=== PATIENT | female | born 1940 | race Caucasian/White ===

== ENCOUNTER 2018-11-09 11:12 | Inpatient (IN) ==
[2018-11-09] MEDS ORDERED: ALBUTEROL 2.5 MG/3 ML NEB RESP TX STA (11:51)
[2018-11-09 12:20] LABS: Basophils % 0.2 % (0.0-0.8); Eosinophils % 0.1 % (0.00-10.9); Hematocrit 42.1 VOL% (35.7-47.0); Hemoglobin 13.8 GM/DL (12.0-16.0); Immature Granulocytes % 0.4 %; Immature Granulocytes Absolute 0.05 #; Lymphocytes % 16.7 % (21.3-54.2); Mean Corpuscular HGB Conc 32.8 GM/DL (32-36); Mean Corpuscular Hemoglobin 30 PG (27-34); Mean Corpuscular Volume 92.1 FL (87-102); Monocytes # 0.6 10*3/uL (0.11-0.8); Monocytes % 5.1 % (1.7-12.7); Neutrophils # 9.4 10*3/uL (1.4-7.4); Neutrophils % 77.5 % (38.7-73.9); Platelet Count 248 T/CUMM (130-400); Red Blood Count 4.57 MC/CUMM (3.8-5.5); Red Cell Distribution Width 13.4 % (9.3-17.3); White Blood Count 12.1 T/CUMM (4-12)
[2018-11-09] MEDS ORDERED: ONDANSETRON 4 MG/2 ML VIAL ONE (12:27)
[2018-11-09] MEDS ORDERED: ONDANSETRON 4 MG/2 ML VIAL IV STA (12:30)
[2018-11-09] MEDS ORDERED: ENOXAPARIN 100 MG/ML SYRINGE SUBCUT STA (12:42)
[2018-11-09] MEDS ORDERED: ASPIRIN 325 MG TABLET PO STA (12:42)
[2018-11-09 12:51] LABS: Albumin 3.8 G/DL (3.4-5.0); Bilirubin,Total 0.6 MG/DL (0.2-1.0); Calcium 9.3 MG/DL (8.5-10.1); Osmolality,Calculated 281.1 MOS/KG (273-304); Potassium 4.4 MMOL/L (3.5-5.1); Total Protein 8.9 G/DL (6.4-8.3)
[2018-11-09] MEDS ORDERED: MAGNESIUM SULF RIDER 2 GM in PREMIX 1 EACH IV PRN (14:19)
[2018-11-09] MEDS ORDERED: BISACODYL 5 MG TABLET PO PRN (14:19)
[2018-11-09] MEDS ORDERED: MAGNESIUM SULF RIDER 4 GM in PREMIX 1 EACH IV PRN (14:19)
[2018-11-09] MEDS ORDERED: ONDANSETRON 4 MG/2 ML VIAL IV PRN (14:19)
[2018-11-09] MEDS ORDERED: FUROSEMIDE 40 MG/4 ML VIAL IV STA (14:54)
[2018-11-09] MEDS ORDERED: SODIUM CHLORIDE 0.9% 1,000 ML IV STA (15:05)
[2018-11-09] MEDS ORDERED: diphenhydrAMINE CAP 25 MG CAPSULE PO STA (15:17)
[2018-11-09] MEDS: ROSUVASTATIN 20 MG TABLET PO SCH (17:00)
[2018-11-09] MEDS ORDERED: diphenhydrAMINE CAP 25 MG CAPSULE PO ONE (21:00)
[2018-11-09] MEDS ORDERED: FUROSEMIDE 40 MG/4 ML VIAL IV SCH (21:00)
[2018-11-09] MEDS: APIXABAN 5 MG TABLET PO SCH (21:21)
[2018-11-09] MEDS: MAGNESIUM CHLORIDE 64 MG TABLET PO SCH (21:21)
[2018-11-10 04:09] LABS: Basophils % 0.4 % (0.0-0.8); Eosinophils % 0.2 % (0.00-10.9); Hematocrit 35.8 VOL% (35.7-47.0); Hemoglobin 11.5 GM/DL (12.0-16.0); Immature Granulocytes % 0.4 %; Immature Granulocytes Absolute 0.04 #; Lymphocytes # 3.5 10*3/uL (1.4-4.0); Lymphocytes % 37.2 % (21.3-54.2); Mean Corpuscular HGB Conc 32.1 GM/DL (32-36); Mean Corpuscular Hemoglobin 30 PG (27-34); Mean Corpuscular Volume 92.5 FL (87-102); Monocytes # 0.8 10*3/uL (0.11-0.8); Monocytes % 8.4 % (1.7-12.7); Neutrophils % 53.4 % (38.7-73.9); Platelet Count 209 T/CUMM (130-400); Red Blood Count 3.87 MC/CUMM (3.8-5.5); Red Cell Distribution Width 13.7 % (9.3-17.3); White Blood Count 9.3 T/CUMM (4-12)
[2018-11-10 04:35] LABS: Calcium 8.7 MG/DL (8.5-10.1); Osmolality,Calculated 291.3 MOS/KG (273-304)
[2018-11-10 04:40] LABS: Risk Ratio 3.69; VLDL CHOLESTEROL 25.6 MG/DL
[2018-11-10] MEDS: MAGNESIUM CHLORIDE 64 MG TABLET PO SCH ×2 (08:41→21:24)
[2018-11-10] MEDS: PANTOPRAZOLE 40 MG TABLET PO SCH (08:41)
[2018-11-10] MEDS: ASCORBIC ACID 500 MG TABLET PO SCH (08:41)
[2018-11-10] MEDS: CARVEDILOL 25 MG TABLET PO SCH (08:41)
[2018-11-10] MEDS: MULTIVITAMIN (CENTRUM) TABLET PO SCH (08:41)
[2018-11-10] MEDS: APIXABAN 5 MG TABLET PO SCH ×2 (08:41→21:24)
[2018-11-10] MEDS: ASPIRIN EC 81 MG TABLET PO SCH (08:41)
[2018-11-10] MEDS ORDERED: ENOXAPARIN 30 MG/0.3 ML SYRINGE SUBCUT SCH (09:00)
[2018-11-10 10:13] LABS: Apearance,Urine CLOUDY (Clear); Bacteria,Urine Few /HPF (Few); Bilirubin,Urine Negative (Negative); Blood, Urine Negative (Negative); Glucose,Urine (UA) Negative (Negative); Hyaline Casts,Urine 8 /LPF (0-3); Ketones,Urine 5 mg/dL (Negative); Mucus,Urine Occasional /LPF (Occasional); Nitrite,Urine Negative (Negative); Protein,Urine 30 MG/DL; RBC,Urine 5 /HPF (0-4); Squamous Epithelial Cell,Urine Few /HPF (0-10); Transitional Epi Cells,Urine Occasional /HPF (<1); Urine Specific Gravity 1.025 (1.001-1.035); Urine Urobilinogen < 2.0 EU/DL (0.2-1.0); WBC,Urine 7 /HPF (0-6)
[2018-11-10 10:14] LABS: Urine Color Yellow (Yellow)
[2018-11-10] MEDS: ROSUVASTATIN 20 MG TABLET PO SCH (16:11)
[2018-11-11] MEDS: ASCORBIC ACID 500 MG TABLET PO SCH (08:12)
[2018-11-11] MEDS: ASPIRIN EC 81 MG TABLET PO SCH (08:12)
[2018-11-11] MEDS: CARVEDILOL 25 MG TABLET PO SCH (08:12)
[2018-11-11] MEDS: PANTOPRAZOLE 40 MG TABLET PO SCH (08:12)
[2018-11-11] MEDS: APIXABAN 5 MG TABLET PO SCH ×2 (08:12→20:23)
[2018-11-11] MEDS: MULTIVITAMIN (CENTRUM) TABLET PO SCH (08:12)
[2018-11-11] MEDS: MAGNESIUM CHLORIDE 64 MG TABLET PO SCH ×2 (08:12→20:23)
[2018-11-11] MEDS ORDERED: Cyanocobalamin (Vitamin B-12) [Vitamin B-12] 5,000 MCG SL SCH (09:00)
[2018-11-11] MEDS: BENZONATATE 100 MG CAPSULE PO PRN ×2 (10:13→20:24)
[2018-11-11] MEDS ORDERED: ALBUTEROL/IPRATROPIUM 3 ML NEB RESP TX ONE (12:59)
[2018-11-11] MEDS: ROSUVASTATIN 20 MG TABLET PO SCH (17:00)
[2018-11-11] MEDS: ALBUTEROL/IPRATROPIUM 3 ML NEB RESP TX PRN (18:35)
[2018-11-11] MEDS: ZALEPLON 5 MG CAPSULE PO PRN (23:30)
[2018-11-12] MEDS: MAGNESIUM CHLORIDE 64 MG TABLET PO SCH ×2 (08:10→20:25)
[2018-11-12] MEDS: MULTIVITAMIN (CENTRUM) TABLET PO SCH (08:10)
[2018-11-12] MEDS: ASCORBIC ACID 500 MG TABLET PO SCH (08:11)
[2018-11-12] MEDS: ASPIRIN EC 81 MG TABLET PO SCH (08:11)
[2018-11-12] MEDS: PANTOPRAZOLE 40 MG TABLET PO SCH (08:11)
[2018-11-12] MEDS: CARVEDILOL 25 MG TABLET PO SCH (08:12)
[2018-11-12] MEDS: APIXABAN 5 MG TABLET PO SCH ×2 (08:12→20:24)
[2018-11-12] MEDS: amLODIPine 2.5 MG TABLET PO SCH (11:58)
[2018-11-12] MEDS: BENZONATATE 100 MG CAPSULE PO PRN ×2 (13:00→20:25)
[2018-11-12] MEDS: ALBUTEROL/IPRATROPIUM 3 ML NEB RESP TX PRN (13:31)
[2018-11-12] MEDS: ROSUVASTATIN 20 MG TABLET PO SCH (16:04)
[2018-11-12] MEDS: ZALEPLON 5 MG CAPSULE PO PRN (22:09)
[2018-11-13] MEDS: MULTIVITAMIN (CENTRUM) TABLET PO SCH (09:17)
[2018-11-13] MEDS: ASPIRIN EC 81 MG TABLET PO SCH (09:17)
[2018-11-13] MEDS: CARVEDILOL 25 MG TABLET PO SCH (09:17)
[2018-11-13] MEDS: PANTOPRAZOLE 40 MG TABLET PO SCH (09:18)
[2018-11-13] MEDS: ASCORBIC ACID 500 MG TABLET PO SCH (09:18)
[2018-11-13] MEDS: MAGNESIUM CHLORIDE 64 MG TABLET PO SCH ×2 (09:18→22:14)
[2018-11-13] MEDS: amLODIPine 2.5 MG TABLET PO SCH (09:18)
[2018-11-13] MEDS: APIXABAN 5 MG TABLET PO SCH ×2 (09:18→22:14)
[2018-11-13 09:35] LABS: Basophils # 0.1 10*3/uL (0.0-0.2); Basophils % 0.5 % (0.0-0.8); Eosinophils # 0.5 10*3/uL (0.0-0.87); Hematocrit 38.8 VOL% (35.7-47.0); Hemoglobin 12.8 GM/DL (12.0-16.0); Immature Granulocytes % 0.5 %; Immature Granulocytes Absolute 0.05 #; Lymphocytes # 3.3 10*3/uL (1.4-4.0); Lymphocytes % 34.1 % (21.3-54.2); Mean Corpuscular Hemoglobin 30 PG (27-34); Mean Corpuscular Volume 91.5 FL (87-102); Mean Platelet Volume 9.6 FL (9.6-12.0); Monocytes # 0.6 10*3/uL (0.11-0.8); Monocytes % 6.6 % (1.7-12.7); Neutrophils # 5.1 10*3/uL (1.4-7.4); Neutrophils % 53.3 % (38.7-73.9); Platelet Count 295 T/CUMM (130-400); Red Blood Count 4.24 MC/CUMM (3.8-5.5); Red Cell Distribution Width 13.4 % (9.3-17.3); White Blood Count 9.6 T/CUMM (4-12)
[2018-11-13 09:56] LABS: Albumin 3.3 G/DL (3.4-5.0); Bilirubin,Total 0.5 MG/DL (0.2-1.0); Calcium 8.6 MG/DL (8.5-10.1); Osmolality,Calculated 281.8 MOS/KG (273-304); Potassium 4.1 MMOL/L (3.5-5.1); Total Protein 7.8 G/DL (6.4-8.3)
[2018-11-13] MEDS: ROSUVASTATIN 20 MG TABLET PO SCH (17:11)
[2018-11-13] MEDS: BENZONATATE 100 MG CAPSULE PO PRN (22:14)
[2018-11-14 08:16] LABS: Basophils % 0.5 % (0.0-0.8); Eosinophils # 0.4 10*3/uL (0.0-0.87); Eosinophils % 4.9 % (0.00-10.9); Hematocrit 37.8 VOL% (35.7-47.0); Hemoglobin 12.2 GM/DL (12.0-16.0); Immature Granulocytes % 0.4 %; Immature Granulocytes Absolute 0.03 #; Lymphocytes # 3.2 10*3/uL (1.4-4.0); Lymphocytes % 40.1 % (21.3-54.2); Mean Corpuscular HGB Conc 32.3 GM/DL (32-36); Mean Corpuscular Hemoglobin 31 PG (27-34); Mean Corpuscular Volume 94.7 FL (87-102); Mean Platelet Volume 9.7 FL (9.6-12.0); Monocytes # 0.5 10*3/uL (0.11-0.8); Monocytes % 6.7 % (1.7-12.7); Neutrophils # 3.7 10*3/uL (1.4-7.4); Neutrophils % 47.4 % (38.7-73.9); Platelet Count 263 T/CUMM (130-400); Red Blood Count 3.99 MC/CUMM (3.8-5.5); Red Cell Distribution Width 13.5 % (9.3-17.3); White Blood Count 7.9 T/CUMM (4-12)
[2018-11-14 08:37] LABS: Calcium 8.7 MG/DL (8.5-10.1); Osmolality,Calculated 280.8 MOS/KG (273-304); Potassium 4.2 MMOL/L (3.5-5.1)
[2018-11-14] MEDS: ASPIRIN EC 81 MG TABLET PO SCH (08:38)
[2018-11-14] MEDS: ASCORBIC ACID 500 MG TABLET PO SCH (08:38)
[2018-11-14] MEDS: MAGNESIUM CHLORIDE 64 MG TABLET PO SCH (08:38)
[2018-11-14] MEDS: APIXABAN 5 MG TABLET PO SCH (08:38)
[2018-11-14] MEDS: MULTIVITAMIN (CENTRUM) TABLET PO SCH (08:38)
[2018-11-14] MEDS: amLODIPine 2.5 MG TABLET PO SCH (08:39)
[2018-11-14] MEDS: CARVEDILOL 25 MG TABLET PO SCH (08:39)
[2018-11-14] MEDS: PANTOPRAZOLE 40 MG TABLET PO SCH (08:39)
[2018-11-14 11:25] VITALS: BP 126/72
[2018-11-14] MEDS ORDERED: ASCORBIC ACID 500 MG TABLET PO SCH (21:00)
== END 2018-11-14 13:45 | disposition swing bed (61) | DRG 176 ==
LOC: N.ED 11:12 → N.EDINP 11:12 → N.TELEN 16:18
PROVIDERS: ADMIT Internal Medicine Cardiovascular Disease; ATTEND Internal Medicine Cardiovascular Disease